=== PATIENT | male | born 1995 | race Caucasian/White ===

== ENCOUNTER 2016-10-28 10:19 | Emergency (ER) | payer BC ==
[2016-10-28 10:41] VITALS: BP 121/64
--- NOTE | 2016-10-28 11:33 | RAD ---
Indication: Left wrist pain 4 views of the wrist demonstrates a bony fragment at the lateral aspect of the distal radial metaphysis. This may be sequela from old injury. The scaphoid demonstrates no fracture. No other bone or joint abnormality is noted. IMPRESSION: Bony density in the lateral aspect of the distal radial metaphysis likely sequela of prior injury. Clinical correlation is suggested.
[2016-10-28] MEDS ORDERED: Naproxen TAB* 250 MG PO ONE (11:39)
--- NOTE | 2016-10-28 11:45 | ED ---
Upper Extremity Pain - HPI Summary HPI Summary: 21 male presents with complaints of left wrist pain after an injury that occurred yesterday while hiking, 10/27/16. Patient states he was walking down the hill when he took a tumble. Woke up this morning with headache and left wrist pain. Also states his lower left back/gluteus is somewhat sore. States he sustained abrasions to his left forehead and has a headache. Denies nausea, vomiting, dizziness, visual changes, tinnitus and memory loss. No LOC. Admits to feeling dazed and having some trouble concentrating. Has had two concussions in the past. Denies PMHx besides spherocytosis and having both appendix and spleen out surgically. No other complaints of injuries at this time, no neck/ spine pain. Admits to some swelling of left wrist. Denies erythema or ecchymosis. Took ibuprofen last night which did seem to help, especially with his headache. No previous injury or fracture to the left wrist. - History of Current Complaint Chief Complaint: EDExtremityUpper Stated Complaint: FALL/HEAD LAC/LT WRIST INJURY Time Seen by Provider: 10/28/16 10:48 Hx Obtained From: Patient, Family/Director Of Development - mother Mechanism Of Injury: Fall From A Standing Position, Twisted Onset/Duration: Started Days Ago - 1, Traumatic, Still Present, Worse Since Timing: Constant - worse with movement Severity Initially: Moderate Severity Currently: Moderate Pain Location: Wrist - left Character: Sharp, Aching Aggravating Factor(s): Movement, Extension Alleviating Factor(s): Rest, OTC Meds Associated Signs & Symptoms: Positive: Swelling Related History: Dominant Hand Right - Allergies/Home Medications Allergies/Adverse Reactions: Allergies Allergy/AdvReac Type Severity Reaction Status Date / Time No Known Allergies Allergy Verified 12/07/15 20:34 PMH/Surg Hx/FS Hx/Imm Hx Endocrine/Hematology History: Reports: Other Endocrine/Hematological Disorders - SPHEREOCYTOSIS Denies: Hx Anticoagulant Therapy, Hx Diabetes, Hx Thyroid Disease Cardiovascular History: Denies: Hx Congestive Heart Failure, Hx Deep Vein Thrombosis, Hx Hypertension , Hx Myocardial Infarction, Hx Pacemaker/ICD Respiratory History: Denies: Hx Asthma, Hx Chronic Obstructive Pulmonary Disease (COPD), Hx Lung Cancer, Hx Pneumonia, Hx Pulmonary Embolism GI History: Denies: Hx Gall Bladder Disease, Hx Gastrointestinal Bleed, Hx Ulcer, Hx Urosepsis History: Reports: Hx Kidney Stones Denies: Hx Dialysis, Hx Renal Disease Sensory History: Denies: Hx Hearing Aid Neurological History: Denies: Hx Dementia, Hx Migraine, Hx Seizures, Hx Transient Ischemic Attacks (TIA) Psychiatric History: Denies: Hx Anxiety, Hx Depression, Hx Panic Disorder, Hx Schizophrenia, Hx Bipolar Disorder - Surgical History Surgery Procedure, Year, and Place: [id number]; 2003-ADENOIDECTOMY ; 2004-DENTAL SURGERY; APPENDECTOMY 2 YRS AGO - Immunization History Immunizations Up to Date: Yes Infectious Disease History: No Infectious Disease History: Denies: Hx Clostridium Difficile, Hx Hepatitis, Hx Human Immunodeficiency Virus (HIV), Hx of Known/Suspected MRSA, Hx Shingles, Hx Tuberculosis, Hx Known/ Suspected VRE, Hx Known/Suspected VRSA, History Other Infectious Disease, Traveled Outside the in Last 30 Days - Family History Known Family History: Positive: Hypertension, Diabetes - Social History Alcohol Use: Occasionally Substance Use Type: Reports: None Smoking Status (MU): Never Smoked Tobacco Review of Systems Constitutional: Negative Cardiovascular: Negative Respiratory: Negative Gastrointestinal: Negative Positive: Arthralgia, Myalgia, Decreased ROM - left wrist Skin: Negative Neurological: Negative All Other Systems Reviewed And Are Negative: Yes Physical Exam Triage Information Reviewed: Yes Vital Signs On Initial Exam: Initial Vitals Temp Pulse Resp BP Pulse Ox 98.0 F 65 20 121/64 100 10/28/16 10:38 10/28/16 10:38 10/28/16 10:38 10/28/16 10:38 10/28/16 10:38 Vital Signs Reviewed: Yes Appearance: Positive: Well-Appearing, No Pain Distress, Well-Nourished Skin: Positive: Warm, Skin Color Reflects Adequate Perfusion, Dry, Soft, Other - healing abrasion noted on left forehead/parietal lobe. no lacerations noted. Negative: Cold, Diaphoretic Head/Face: Positive: Normal Head/Face Inspection - no hematomas, racoon eyes, battles signs or ecchymosis. Abrasions noted of left forehead/parital lobe Eyes: Positive: Normal, EOMI, VÍCTOR, Conjunctiva Clear - visual acuity normal ENT: Positive: Normal ENT inspection, Hearing grossly normal, Pharynx normal, TMs normal Dental: Negative: Cervical Lymphadenopathy Neck: Positive: Supple, Nontender, No Lymphadenopathy Respiratory/Lung Sounds: Positive: Clear to Auscultation, Breath Sounds Present. Negative: Rales, Rhonchi, Stridor, Wheezes Cardiovascular: Positive: Normal, RRR, Pulses are Symmetrical in both Upper and Lower Extremities - 2+ radial b/l, <2 sec cap refill. Negative: Murmur, Rub Abdomen Description: Positive: Nontender, Soft Bowel Sounds: Positive: Present Musculoskeletal: Positive: Normal, Limited @ - ROM left wrist especially with extension due to pain, passive ROM greater. rest of exam/extremities normal ROM , Pain @ - left lateral wrist on palpation, in snuff box and distal lateral radius., Other - no crepitus, step off or obvious deformity noted. no ecchymosis , erythema, wounds or edema.. Negative: Edema Left, Edema Right Neurological: Positive: Normal - memory and concentration intact, normal neuro exam, Sensory/Motor Intact - sensation inact, Alert, Oriented to Person Place, Time, CN Intact II-III, Reflexes Intact, NV Bundle Intact Distally, Normal Gait , Heel to Toe - normal, Finger to Nose - normal, Facial Symmetry, Speech Normal. Negative: [place] Psychiatric: Positive: Normal, Affect/Mood Appropriate AVPU Assessment: Alert - [place] Coma Scale Best Eye Response: 4 - Spontaneous Best Motor Response: 6 - Obeys Commands Best Verbal Response: 5 - Oriented Coma Scale Total: 15 Procedures - Splinting Location: left wrist Pre-Made Type: velcro Splint: thumb spica Pre-Proc Neuro Vasc Exam: normal Post-Proc Neuro Vasc Exam: normal Diagnostics - Vital Signs Vital Signs Temp Pulse Resp BP Pulse Ox 10/28/16 10:41 98.0 F 63 20 121/64 100 10/28/16 10:38 98.0 F 65 20 121/64 100 - Laboratory Lab Statement: Any lab studies that have been ordered have been reviewed, and results considered in the medical decision making process. - Radiology left wrist Xray Interpretation: Positive (See Comments) - Bony density in the lateral aspect of the distal radial metaphysis likely sequela of prior injury. Clinical correlation is suggested. Scaphoid without fracture. Radiology Interpretation Completed By: Radiologist Course/Dx - Course Course Of Treatment: given naproxen while in ED. x-ray obtained and shows possible acute fracture, given no history of previous injury to left wrist. Also clinically correlated with pain, PE findings and [place]. Wrist possible fracture- splinted without complication in thumb spica incase of scaphoid fracture and for distal radius fracture. Needs re-imaging in 2-3 days. NSAIDs, ice and elevation. Normal neurologic exam and according to spanish assessment tool, PE findings, HPI and [place] no need for CT scan at this time. Possibly sustained a mild concussion due to [place] and HPI. Will treat as concussion until re-eval. Follow up with ortho and PCP. Rest and refrain from physical activity. Aware of worsening signs and symptoms. - Diagnoses Differential Diagnosis/HQI/PQRI: Positive: Contusion, Fracture (Closed), Strain , Sprain, Other - concussion Provider Diagnoses: Fracture of left wrist, Concussion without loss of consciousness - Physician Notifications Discussed Care of Patient With: Dr Luo Discharge - Discharge Plan Condition: Stable Disposition: HOME Patient Education Materials: Suspected Fracture (ED), Concussion (ED) Referrals: Loyd Bradshaw MD [Primary Care Provider] - Melinda Bazzi MD [Medical Doctor] - Additional Instructions: Apply neosporin to abrasions of head. Rest and refrain from physical activity due to wrist injury and possible mild concussion. Drink plenty of fluids and get plenty of rest. Continue Advil or Aleve for pain and inflammation. Elevate and ice wrist. Keep splint on until seen by orthopedics and refrain from use. Call and make an appointment with orthopedics for further evaluation and imaging. If symptoms worsen or new symptoms develop such as worsening wrist pain, numbness/tingling, worsening headache, nausea, vomiting, visual changes, please seek medical attention promptly. Follow up with PCP.
== END 2016-10-28 12:35 | disposition home or self-care (01) ==
LOC: ED 10:19
DX: S62.102A Fracture of unspecified carpal bone, left wrist, initial encounter for closed fracture (principal); S06.0X0A Concussion without loss of consciousness, initial encounter; M25.532 Pain in left wrist; W19.XXXA Unspecified fall, initial encounter; Y93.9 Activity, unspecified; Y92.9 Unspecified place or not applicable; W17.81XA Fall down embankment (hill), initial encounter
CPT/HCPCS: 99282; A9270-GY

== ENCOUNTER 2017-05-28 09:19 | Emergency (ER) | payer BC ==
[2017-05-28 10:49] LABS: Urine Appearance Clear; Urine Blood 1+ (Negative); Urine Color Yellow; Urine Ketones Negative (Negative); Urine Protein Negative (Negative); Urine Specific Gravity 1.015 (1.010-1.030); Urine Urobilinogen Negative (Negative)
[2017-05-28] MEDS ORDERED: NS 0.9% 1000 ML* 1,000 ML IV ONE (10:53)
[2017-05-28] MEDS ORDERED: Ketorolac INJ* 30 MG/ML 1 ML VIAL IV ONE (10:53)
[2017-05-28] MEDS ORDERED: Ketorolac INJ* 15 MG/ML 1 ML VIAL ONE (10:58)
[2017-05-28 11:09] LABS: ABS Basophils 0.1 10^3/ul (0-0.2); ABS Eosinophils 0.3 10^3/ul (0-0.6); ABS Lymphocytes 1.2 10^3/ul (1.0-4.8); ABS Monocytes 1.3 10^3/ul (0-0.8); ABS Neutrophils 8.2 10^3/ul (1.5-7.7); ABS Nucleated RBC 0 10^3/ul; Hematocrit 42 % (42-52); Hemoglobin 15.6 g/dl (14.0-18.0); Lymphocyte % 10.9 % (25-47); Mean Corpuscular HGB Conc 37 g/dl (31-36); Mean Corpuscular Hemoglobin 33 pg (27-31); Mean Corpuscular Volume 88 fL (80-94); Mean Platelet Volume 7 um3 (7.4-10.4); Nucleated Red Blood Cells % 0; Platelet Count 524 10^3/ul (150-450); Red Blood Count 4.74 10^6/ul (4.0-5.4); Red Cell Distribution Width 14 % (10.5-15); White Blood Count 11.1 10^3/ul (3.5-10.8)
--- NOTE | 2017-05-28 11:16 | ED ---
GI/ HPI - HPI Summary HPI Summary: 22 male presents to ED accompanied by mother with complaints of right lower back /flank discomfort and hematuria upon waking this morning. Patient states this did happen to him about a year ago when diagnosed with kidney stone. Denies any other symptoms. No burning, frequency or abdominal pain. Denies fever/chills, nausea/vomiting. PMHx includes appendectomy and splenectomy. No other medical history. No medications. Has not taken any medication for symptoms. No pain when urinating. Normal bowel movements. Denies genitalia symptoms. Denies STD concern, is sexually active but uses protection. Has urinated since and did not see blood, only hematuria once this morning. Denies recent trauma, injury, strenuous physical activity and working out, no supplement use. - History of Current Complaint Chief Complaint: EDFlankPain Time Seen by Provider: 05/28/17 10:53 Stated Complaint: BLOOD IN URINE Hx Obtained From: Patient Onset/Duration: Started Hours Ago, Resolved Timing: Intermittent Severity: Moderate Current Severity: Moderate Pain Intensity: 8 Location of Pain: Flank - R Pain Characteristics: Colicy, Tearing Associated Signs and Symptoms: Positive: Hematuria, Flank Pain Aggravating Factor(s): Nothing Alleviating Factor(s): Nothing - Allergy/Home Medications Allergies/Adverse Reactions: Allergies Allergy/AdvReac Type Severity Reaction Status Date / Time No Known Allergies Allergy Verified 05/28/17 09:40 PMH/Surg Hx/FS Hx/Imm Hx Endocrine/Hematology History: Reports: Other Endocrine/Hematological Disorders - SPHEREOCYTOSIS Denies: Hx Anticoagulant Therapy, Hx Diabetes, Hx Thyroid Disease Cardiovascular History: Denies: Hx Congestive Heart Failure, Hx Deep Vein Thrombosis, Hx Hypertension , Hx Myocardial Infarction, Hx Pacemaker/ICD Respiratory History: Denies: Hx Asthma, Hx Chronic Obstructive Pulmonary Disease (COPD), Hx Lung Cancer, Hx Pneumonia, Hx Pulmonary Embolism GI History: Denies: Hx Gall Bladder Disease, Hx Gastrointestinal Bleed, Hx Ulcer, Hx Urosepsis History: Reports: Hx Kidney Stones Denies: Hx Dialysis, Hx Renal Disease Musculoskeletal History: Reports: Other Musculoskeletal History - Lt wrist fx Sensory History: Denies: Hx Hearing Aid Neurological History: Reports: Other Neuro Impairments/Disorders - H/o concussions - post concussive syndrome Denies: Hx Dementia, Hx Migraine, Hx Seizures, Hx Transient Ischemic Attacks (TIA) Psychiatric History: Denies: Hx Anxiety, Hx Depression, Hx Panic Disorder, Hx Schizophrenia, Hx Bipolar Disorder - Surgical History Surgery Procedure, Year, and Place: [id number]; 2003-ADENOIDECTOMY ; 2005-DENTAL SURGERY; APPENDECTOMY 2 YRS AGO - Immunization History Immunizations Up to Date: Yes Infectious Disease History: Yes Infectious Disease History: Denies: Hx Clostridium Difficile, Hx Hepatitis, Hx Human Immunodeficiency Virus (HIV), Hx of Known/Suspected MRSA, Hx Shingles, Hx Tuberculosis, Hx Known/ Suspected VRE, Hx Known/Suspected VRSA, History Other Infectious Disease, Traveled Outside the [place] in Last 30 Days - Family History Known Family History: Positive: Hypertension, Diabetes - Social History Alcohol Use: Occasionally Alcohol Amount: socially Hx Substance Use: No Substance Use Type: Reports: None Hx Tobacco Use: No Smoking Status (MU): Never Smoked Tobacco Review of Systems Constitutional: Negative Cardiovascular: Negative Respiratory: Negative Gastrointestinal: Negative Positive: flank pain - r, hematuria Neurological: Negative All Other Systems Reviewed And Are Negative: Yes Physical Exam Triage Information Reviewed: Yes Vital Signs On Initial Exam: Initial Vitals Temp Pulse Resp BP Pulse Ox 99.0 F 111 15 124/72 100 05/28/17 09:40 05/28/17 09:40 05/28/17 09:40 05/28/17 09:40 05/28/17 09:40 HR improved to 52 on recheck Vital Signs Reviewed: Yes Appearance: Positive: Well-Appearing, No Pain Distress, Well-Nourished Skin: Positive: Warm, Skin Color Reflects Adequate Perfusion, Dry. Negative: Cold, Jaundiced, Erythema @ Head/Face: Positive: Normal Head/Face Inspection Eyes: Positive: Conjunctiva Clear ENT: Positive: Hearing grossly normal Neck: Positive: Supple, Nontender Respiratory/Lung Sounds: Positive: Clear to Auscultation, Breath Sounds Present. Negative: Rales, Rhonchi, Wheezes Cardiovascular: Positive: Normal, RRR, Pulses are Symmetrical in both Upper and Lower Extremities. Negative: Murmur, Rub Abdomen Description: Positive: Nontender, No Organomegaly, Soft, CVA Tenderness (R), CVA Tenderness (L). Negative: Distended, Guarding, [place] Tenderness, Peritoneal Signs Bowel Sounds: Positive: Present Male Genital Exam: Positive: normal genitalia Musculoskeletal: Positive: Normal, Strength/ROM Intact Neurological: Positive: Normal, Sensory/Motor Intact, Alert, Oriented to Person Place, Time - [place] Coma Scale Coma Scale Total: 15 Diagnostics - Vital Signs Vital Signs Temp Pulse Resp BP Pulse Ox 05/28/17 11:00 59 100 05/28/17 10:55 52 100 05/28/17 09:40 99.0 F 111 15 124/72 100 - Laboratory Lab Results: Lab Results 05/28/17 05/28/17 Range/Units 09:50 11:01 WBC 11.1 H (3.5-10.8) 10^3/ul RBC 4.74 (4.0-5.4) 10^6/ul Hgb 15.6 (14.0-18.0) g/dl Hct 42 (42-52) % MCV 88 (80-94) fL MCH 33 H (27-31) pg MCHC 37 H (31-36) g/dl RDW 14 (10.5-15) % Plt Count 524 H (150-450) 10^3/ul MPV 7 L (7.4-10.4) um3 Neut % (Auto) 73.8 (38-83) % Lymph % (Auto) 10.9 L (25-47) % [place] % (Auto) 11.8 H (1-9) % Eos % (Auto) 3.0 (0-6) % Baso % (Auto) 0.5 (0-2) % Absolute Neuts (auto) 8.2 H (1.5-7.7) 10^3/ul Absolute Lymphs (auto) 1.2 (1.0-4.8) 10^3/ul Absolute Monos (auto) 1.3 H (0-0.8) 10^3/ul Absolute Eos (auto) 0.3 (0-0.6) 10^3/ul Absolute Basos (auto) 0.1 (0-0.2) 10^3/ul Absolute Nucleated RBC 0 10^3/ul Nucleated RBC % 0 Urine Color Yellow Urine Appearance Clear Urine pH 5.0 (5-9) Ur Specific [place] 1.015 (1.010-1.030) Urine Protein Negative (Negative) Urine Ketones Negative (Negative) Urine Blood 1+ H (Negative) Urine Nitrate Negative (Negative) Urine Bilirubin Negative (Negative) Urine Urobilinogen Negative (Negative) Ur Leukocyte Esterase Negative (Negative) Urine WBC (Auto) Absent (Absent) Urine RBC (Auto) 1+(3-5/hpf) H (Absent) Ur Squamous Epith Cells Present H (Absent) Urine Bacteria Absent (Absent) Urine Glucose Negative (Negative) Result Diagrams: 05/28/17 11:01 05/28/17 11:01 Lab Statement: Any lab studies that have been ordered have been reviewed, and results considered in the medical decision making process. - CT abd/pelvis CT Interpretation: No Acute Changes - No evidence of obstructive uropathy is noted. Patient is status post splenectomy. No other masses or fluid collections are noted. CT Interpretation Completed By: Radiologist - and myself Re-Evaluation - Re-Evaluation First Eval Re-Evaluation Time: 12:00 Change: Improved - had significant relief after small dose of toradol, pain 0/10 GIGU Course/Dx - Course Course Of Treatment: labs obtained and unremarkable for acute changes. patient has some minor abnormalities of plateltes and differential of cells due to splenectomy. negative crp and WBC. no sign of infection. urinalysis obtained and negative other than blood and RBC 1+, trace. patient given toradol and fluids, had significant relief and without complaints. CT abd/pelvis obtained and negative for calculi and other abdominal etiology at this time. appears patient possible may have passed calculi. no injury or trauma. STD test pending. normal PE otherwise. will send home with follow up with urology and pcp. aware of worsening signs and symptoms to watch out for and return if occur. normal vitals and afebrile. no other concerns at this time. ran case by Dr Chu, who agrees. - Diagnoses Differential Diagnoses - Male: Cystitis, Renal Calculi, STD, Ureteral Calculi, Urinary Tract Infection, Other - hematuria Provider Diagnoses: Hematuria, Right flank pain - Physician Notifications Discussed Care Of Patient With: Dr Chu Discharge - Discharge Plan Condition: Stable Disposition: HOME Patient Education Materials: Hematuria (ED) Referrals: Loyd Bradshaw MD [Primary Care Provider] - Vidal Sanchez MD [Medical Doctor] - Additional Instructions: Please make an appointment to follow up with Urologist for further evaluation of hematuria. Follow up with PCP. Any new or worsening signs/symptoms please seek medical attention. Pending results will be called to you if positive, once received. Increase fluid intake.
--- NOTE | 2017-05-28 11:36 | RAD ---
Indication: Right kidney stone, right flank pain. CT of the abdomen and pelvis was performed without oral or IV contrast administration. Coronal and sagittal reconstructed images were obtained. Lung bases demonstrate no pleural fluid, nodules or masses. Heart is of normal size without evidence of pericardial effusion. Liver is normal in size. No focal lesions or intrahepatic ductal dilatation is noted. The pancreas demonstrates no mass or pancreatic duct dilatation. Surgical clips are noted in the left splenic hilum presumed to be splenectomy. No adrenal masses are noted. The kidneys demonstrates no hydronephrosis or hydroureter. No evidence of radiopaque calculi is noted along the course of the right ureter. Urinary bladder is unremarkable. Aorta and inferior vena cava are unremarkable. No retroperitoneal lymphadenopathy is noted. No dilated loops of bowel are noted. The colon is filled with stool. The prostate is otherwise unremarkable. No hernias are noted. The [place] bladder is unremarkable. IMPRESSION: No evidence of obstructive uropathy is noted. Patient is status post splenectomy. No other masses or fluid collections are noted.
[2017-05-28 11:39] LABS: EGFR Non-African American 115.3 (>60)
[2017-05-28 13:31] VITALS: BP 116/65
== END 2017-05-28 13:30 | disposition home or self-care (01) ==
LOC: ED 09:19
DX: R31.9 Hematuria, unspecified (principal); R10.9 Unspecified abdominal pain; Z90.81 Acquired absence of spleen; Z87.442 Personal history of urinary calculi
CPT/HCPCS: 36415; 74176; 80053; 81003; 81015; 83605; 85025; 86140; 96374; 99282; J1885